=== PATIENT | female | born 1950 | race Caucasian/White ===

== ENCOUNTER 2020-11-26 08:03 | Observation (INO) ==
[2020-11-26] MEDS ORDERED: ONDANSETRON 4 MG/2 ML VIAL IV ONE (08:37)
[2020-11-26 08:59] LABS: Basophils # 0.1 10*3/uL (0.0-0.2); Basophils % 0.4 % (0.0-0.8); Eosinophils # 0.1 10*3/uL (0.0-0.87); Eosinophils % 0.6 % (0.00-10.9); Hematocrit 36.2 VOL% (35.7-47.0); Hemoglobin 12.1 GM/DL (12.0-16.0); Immature Granulocytes % 0.6 %; Immature Granulocytes Absolute 0.11 #; Lymphocytes # 1.1 10*3/uL (1.4-4.0); Lymphocytes % 6.4 % (21.3-54.2); Mean Corpuscular HGB Conc 33.4 GM/DL (32-36); Mean Corpuscular Volume 93.1 FL (87-102); Mean Platelet Volume 9.5 FL (9.6-12.0); Monocytes % 6.2 % (1.7-12.7); Neutrophils % 85.8 % (38.7-73.9); Platelet Count 267 T/CUMM (130-400); Red Blood Count 3.89 MC/CUMM (3.8-5.5); Red Cell Distribution Width 14.7 % (9.3-17.3); White Blood Count 17.6 T/CUMM (4-12)
[2020-11-26 09:14] LABS: INR 1.1; PT Patient Result 11.4 SECS (9.8-11.9)
[2020-11-26 09:19] LABS: Troponin I < 0.015 NG/ML (0.00-0.045)
[2020-11-26 09:23] LABS: Bilirubin,Total 0.7 MG/DL (0.2-1.0); Calcium 9.1 MG/DL (8.5-10.1); Osmolality,Calculated 268.1 MOS/KG (273-304); Total Protein 7.4 G/DL (6.4-8.3)
[2020-11-26 09:38] LABS: Bilirubin,Urine Negative (Negative); Blood, Urine Negative (Negative); Glucose,Urine (UA) Negative (Negative); Ketones,Urine Negative (Negative); Mucus,Urine Occasional /LPF (Occasional); Nitrite,Urine Negative (Negative); Protein,Urine Negative; RBC,Urine <1 /HPF (0-4); Squamous Epithelial Cell,Urine Occasional /HPF (0-10); Urine Appearance CLEAR (Clear); Urine Color Yellow (Yellow); Urine Specific Gravity 1.008 (1.001-1.035); WBC,Urine 4 /HPF (0-6)
[2020-11-26] MEDS ORDERED: PIPERACILLIN/TAZOBACTAM 3,375 MG in SODIUM CHLORIDE 0.9% 100 ML IV STA (10:54)
[2020-11-26] MEDS ORDERED: ONDANSETRON 4 MG/2 ML VIAL IV PRN (12:30)
[2020-11-26] MEDS ORDERED: DEXTROSE 50% 25 GM/50 ML VIAL IV PRN (12:30)
[2020-11-26] MEDS ORDERED: GLUCAGON 1 MG VIAL IM PRN (12:30)
[2020-11-26] MEDS ORDERED: ACETAMINOPHEN 325 MG TABLET PO PRN (12:30)
[2020-11-26] MEDS: cefTRIAXone 1,000 MG in SYRINGE 1 EACH IV SCH (14:27)
[2020-11-26] MEDS: SODIUM CHLORIDE 0.9% 1,000 ML IV SCH ×2 (14:27→22:45)
[2020-11-26] MEDS ORDERED: ALBUTEROL 2.5 MG/3 ML NEB RESP TX PRN (15:29)
[2020-11-26] MEDS: ASPIRIN CHEW 81 MG TABLET PO SCH (20:13)
[2020-11-26] MEDS: ROSUVASTATIN 10 MG TABLET PO SCH (20:13)
[2020-11-26] MEDS: NORTRIPTYLINE 25 MG CAPSULE PO SCH (20:14)
[2020-11-26] MEDS: TOPIRAMATE 100 MG TABLET PO SCH (20:14)
[2020-11-26] MEDS: PANTOPRAZOLE 40 MG TABLET PO SCH (20:14)
[2020-11-26] MEDS: ENOXAPARIN 40 MG/0.4 ML SYRINGE SUBCUT SCH (20:14)
[2020-11-27] MEDS: LEVOTHYROXINE 125 MCG TABLET PO SCH (05:37)
[2020-11-27 06:08] LABS: Calcium 9.3 MG/DL (8.5-10.1); Osmolality,Calculated 277.4 MOS/KG (273-304)
[2020-11-27 06:17] LABS: Basophils # 0.1 10*3/uL (0.0-0.2); Basophils % 0.6 % (0.0-0.8); Eosinophils # 0.1 10*3/uL (0.0-0.87); Eosinophils % 0.9 % (0.00-10.9); Hematocrit 34.7 VOL% (35.7-47.0); Hemoglobin 11.7 GM/DL (12.0-16.0); Immature Granulocytes % 0.5 %; Immature Granulocytes Absolute 0.06 #; Lymphocytes # 1.4 10*3/uL (1.4-4.0); Lymphocytes % 11.7 % (21.3-54.2); Mean Corpuscular HGB Conc 33.7 GM/DL (32-36); Mean Corpuscular Volume 92.5 FL (87-102); Mean Platelet Volume 9.9 FL (9.6-12.0); Monocytes % 10.1 % (1.7-12.7); Neutrophils % 76.2 % (38.7-73.9); Platelet Count 283 T/CUMM (130-400); Red Blood Count 3.75 MC/CUMM (3.8-5.5); Red Cell Distribution Width 14.7 % (9.3-17.3); White Blood Count 12.1 T/CUMM (4-12)
[2020-11-27] MEDS: SODIUM CHLORIDE 0.9% 1,000 ML IV SCH ×4 (07:09→23:15)
[2020-11-27] MEDS: amLODIPine 10 MG TABLET PO SCH (08:52)
[2020-11-27] MEDS: PARoxetine 20 MG TABLET PO SCH (08:52)
[2020-11-27] MEDS: TOPIRAMATE 100 MG TABLET PO SCH ×2 (08:52→20:13)
[2020-11-27] MEDS: VENLAFAXINE XR 75 MG CAPSULE PO SCH (08:52)
[2020-11-27] MEDS: PANTOPRAZOLE 40 MG TABLET PO SCH ×2 (08:53→20:13)
[2020-11-27] MEDS: ALPRAZolam 0.5 MG TABLET PO SCH (08:53)
[2020-11-27] MEDS: NON-FORMULARY MEDICATION (Fluticasone Furoate-Vilanterol [Breo Ellipta] 200-25 mcg/dose Bl INH SCH (08:53)
[2020-11-27] MEDS: cefTRIAXone 1,000 MG in SYRINGE 1 EACH IV SCH (12:41)
[2020-11-27] MEDS: BENZONATATE 100 MG CAPSULE PO PRN ×2 (16:17→22:36)
[2020-11-27] MEDS: ENOXAPARIN 40 MG/0.4 ML SYRINGE SUBCUT SCH (20:13)
[2020-11-27] MEDS: ASPIRIN CHEW 81 MG TABLET PO SCH (20:13)
[2020-11-27] MEDS: NORTRIPTYLINE 25 MG CAPSULE PO SCH (20:13)
[2020-11-27] MEDS: ROSUVASTATIN 10 MG TABLET PO SCH (20:13)
[2020-11-28] MEDS: LEVOTHYROXINE 125 MCG TABLET PO SCH (05:37)
[2020-11-28 06:42] LABS: Basophils # 0.1 10*3/uL (0.0-0.2); Basophils % 0.8 % (0.0-0.8); Eosinophils # 0.2 10*3/uL (0.0-0.87); Eosinophils % 2.2 % (0.00-10.9); Hematocrit 34.6 VOL% (35.7-47.0); Hemoglobin 11.6 GM/DL (12.0-16.0); Immature Granulocytes % 0.5 %; Immature Granulocytes Absolute 0.04 #; Lymphocytes # 1.5 10*3/uL (1.4-4.0); Lymphocytes % 17.5 % (21.3-54.2); Mean Corpuscular HGB Conc 33.5 GM/DL (32-36); Mean Corpuscular Volume 90.8 FL (87-102); Monocytes % 10.7 % (1.7-12.7); Neutrophils % 68.3 % (38.7-73.9); Platelet Count 312 T/CUMM (130-400); Red Blood Count 3.81 MC/CUMM (3.8-5.5); Red Cell Distribution Width 14.6 % (9.3-17.3); White Blood Count 8.5 T/CUMM (4-12)
[2020-11-28 07:11] LABS: Calcium 8.9 MG/DL (8.5-10.1); Osmolality,Calculated 275.5 MOS/KG (273-304)
[2020-11-28 07:38] VITALS: BP 131/58
[2020-11-28] MEDS: ALPRAZolam 0.5 MG TABLET PO SCH (08:09)
[2020-11-28] MEDS: TOPIRAMATE 100 MG TABLET PO SCH (08:09)
[2020-11-28] MEDS: VENLAFAXINE XR 75 MG CAPSULE PO SCH (08:10)
[2020-11-28] MEDS: amLODIPine 10 MG TABLET PO SCH (08:11)
[2020-11-28] MEDS: PARoxetine 20 MG TABLET PO SCH (08:11)
[2020-11-28] MEDS: NON-FORMULARY MEDICATION (Fluticasone Furoate-Vilanterol [Breo Ellipta] 200-25 mcg/dose Bl INH SCH (08:13)
[2020-11-28] MEDS: PANTOPRAZOLE 40 MG TABLET PO SCH (08:13)
[2020-11-28] MEDS: BENZONATATE 100 MG CAPSULE PO PRN (08:17)
[2020-11-28] MEDS ORDERED: POTASSIUM CHLORIDE 20 MEQ PACK PO ONE (08:25)
[2020-11-28] MEDS ORDERED: CIPROFLOXACIN 500 MG TABLET PO ONE (10:30)
== END 2020-11-28 10:53 | disposition home or self-care (01) ==
LOC: N.ED 08:03 → N.EDINP 08:03 → N.5E 13:05
PROVIDERS: ADMIT Internal Medicine; ATTEND Internal Medicine